=== PATIENT | male | born 1980 | race Caucasian/White ===

== ENCOUNTER 2020-02-22 13:22 | Emergency (ER) | payer MEDICAID, OTHER ==
[~2020-02-22] VITALS: Ht 177.8 cm; Wt 86.2 kg
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
[2020-02-22 13:57] LABS: BASOPHILS # (AUTO) 0.1 K/uL (0.0-8.0); BASOPHILS % (AUTO) 0.8 % (0.0-2.0); EOSINOPHILS # (AUTO) 0.3 K/uL (0.0-0.7); EOSINOPHILS % (AUTO) 2.3 % (0.0-7.0); HEMATOCRIT 44.9 % (36.7-47.1); HEMOGLOBIN 14.9 g/dL (12.5-16.3); LYMPHOCYTES # (AUTO) 1.4 K/uL (20.0-40.0); LYMPHOCYTES % (AUTO) 12.3 % (20.5-51.5); MEAN CORPUSCULAR HEMOGLOBIN 31.8 uug (23.8-33.4); MEAN CORPUSCULAR HGB CONC 33 g/dL (32.5-36.3); MEAN CORPUSCULAR VOLUME 95.6 fL (73.0-96.2); MONOCYTES # (AUTO) 1.1 K/uL (2.0-10.0); MONOCYTES % (AUTO) 9.6 % (0.0-11.0); NEUTROPHILS # (AUTO) 8.8 K/uL (1.8-8.9); PLATELET COUNT (AUTO) 213 K/uL (152-348); WHITE BLOOD COUNT (AUTO) 11.7 K/uL (3.6-10.2)
[2020-02-22 14:01] LABS: CREATININE 1.2 mg/dL (0.6-1.3); POTASSIUM 3.5 mmol/L (3.5-5.1)
[2020-02-22] MEDS ORDERED: KETOROLAC TROMETHAMINE 30 MG INJ ONE (14:15)
[2020-02-22] MEDS ORDERED: KETOROLAC TROMETHAMINE 30 MG INJ IM ONE (14:15)
--- NOTE | 2020-02-22 14:56 | NUR ---
IMMOBILIZER PLACED. "ADVOCATE, LEOBARDO" HERE TO DRIVE PATIENT TO [facility]. HE IS NOT HOMELESS. DC, RX AND FOLLOW UP ISNTRUCTIONS GIVEN AND EXPLAINED TO PATIENT AND 'ADVOCATE" WHO STATE THEY UNDERSTAND ALL INSTRUCTIONS.
[2020-02-22 14:58] VITALS: BP 136/78
== END 2020-02-22 14:58 | disposition other institution (70) ==
LOC: ER 13:22
DX: S76.912A Strain of unspecified muscles, fascia and tendons at thigh level, left thigh, initial encounter (principal); Y93.39 Activity, other involving climbing, rappelling and jumping off; Y93.02 Activity, running; Y92.89 Other specified places as the place of occurrence of the external cause; D72.829 Elevated white blood cell count, unspecified; F19.10 Other psychoactive substance abuse, uncomplicated
CPT/HCPCS: 29505; 36415; 72170; 73551; 73590; 76882; 80048; 82550; 85025; 85651; 96372; 99284; J1885; A4663